=== PATIENT | male | born 1980 | race Caucasian/White ===

== ENCOUNTER 2022-10-31 11:54 | Inpatient (IN) | payer OTHER ==
[~2022-10-31] VITALS: Ht 180.3 cm; Wt 86.8 kg
[2022-10-31 12:15] VITALS: BP 155/86
[2022-10-31 12:21] LABS: Basophils # (auto) 0.1 10 ^3/uL (0-0.2); Basophils % (auto) 0.8 % (0.0-2.0); Eosinophils # (auto) 0 10 ^3/uL (0-0.8); Eosinophils % (auto) 0.6 % (0.0-7.0); Hematocrit 42.1 % (41.0-53.0); Hemoglobin 14.8 g/dL (13.5-17.5); Lymphocytes # (auto) 1.9 10 ^3/uL (0.4-5.4); Lymphocytes % (auto) 29.5 % (10.0-50.0); Mean Corpuscular Hemoglobin 29.7 pg (28.0-32.0); Mean Corpuscular Hgb Conc. 35.1 g/dL (32.0-36.0); Mean Corpuscular Volume 84.6 fL (80.0-100.0); Monocytes # (auto) 0.4 10 ^3/uL (0-1.3); Monocytes % (auto) 6.8 % (0.0-12.0); Neutrophils # (auto) 4.1 10 ^3/uL (1.6-8.6); Neutrophils % (auto) 62.3 % (37.0-80.0); Red Blood Cells 4.97 10^6/uL (4.5-5.90); Red Cell Distribution Width 13.6 % (11.8-14.3); White Blood Cell 6.6 10^3/uL (4.4-10.8)
[2022-10-31 12:38] LABS: Albumin 4.5 g/dL (3.4-5.0); Potassium 4.3 mmol/L (3.5-5.1)
[2022-10-31 12:42] LABS: BUN/Creatinine Ratio 16.7; Bilirubin, Total 0.5 mg/dL (0.2-1.0); Total Protein 7.8 g/dL (6.4-8.2)
[2022-10-31] MEDS ORDERED: ONDANSETRON HCL 4 MG/2 ML VIAL IV PRN (19:00)
[2022-10-31] MEDS ORDERED: ACETAMINOPHEN 325 MG TAB PO PRN (19:00)
[2022-10-31] MEDS ORDERED: NITROGLYCERIN 0.4 MG SL TAB SL PRN (19:00)
[2022-10-31] MEDS ORDERED: LORazepam 0.5 MG TAB PO PRN (19:00)
[2022-10-31] MEDS ORDERED: SODIUM CHLORIDE 0.9% 1,000 ML IV SCH (19:00)
[2022-10-31] MEDS ORDERED: MORPHINE SULFATE 4 MG/ML SYR/VIAL IV PRN (19:00)
[2022-10-31] MEDS ORDERED: ENOXAPARIN SOD 40 MG/0.4 ML SYRINGE SC ONE (19:15)
[2022-10-31 19:42] LABS: Cholesterol 175 mg/dL (< 200)
[2022-10-31 19:46] LABS: HDL Cholesterol 61 mg/dL (40-59); LDL Cholesterol 107 mg/dL (< 100); Triglycerides 41 mg/dL (< 150)
[2022-11-01] MEDS ORDERED: DOCUSATE SOD 100 MG CAP PO SCH (10:00)
[2022-11-01] MEDS ORDERED: ASPirin 81 mg TAB PO SCH (10:00)
== END 2022-10-31 20:15 | disposition left against medical advice (07) | DRG 309 ==
LOC: ER 11:54 → TELE 18:54
PROVIDERS: ADMIT Nurse Practitioner Family; ATTEND Nurse Practitioner Family
DX: I48.91 Unspecified atrial fibrillation (principal); I24.9 Acute ischemic heart disease, unspecified; E78.5 Hyperlipidemia, unspecified; I10 Essential (primary) hypertension; Z53.29 Procedure and treatment not carried out because of patient's decision for other reasons
CPT/HCPCS: 36415; 71045; 80053; 80061; 83735; 84443; 84484; 85025; 85379; 93005; G0378

== ENCOUNTER 2022-11-09 09:40 | Emergency (ER) | payer OTHER ==
[~2022-11-09] VITALS: Ht 175.3 cm; Wt 73.0 kg
[2022-11-09] MEDS ORDERED: SODIUM CHLORIDE 0.9% 1,000 ML IV ONE (10:45)
[2022-11-09 11:00] LABS: Urine WBC None Seen /hpf (0 - 3)
[2022-11-09 11:09] LABS: Urine Bacteria NONE SEEN /hpf (None Seen); Urine Blood Negative /uL (Negative); Urine Specific Gravity 1.009 (1.001-1.035)
[2022-11-09 12:11] LABS: Albumin 4.7 g/dL (3.4-5.0); Calcium 9.3 mg/dL (8.5-10.1); Potassium 3.5 mmol/L (3.5-5.1)
[2022-11-09 12:15] LABS: BUN/Creatinine Ratio 18.3; Bilirubin, Total 0.7 mg/dL (0.2-1.0)
[2022-11-09 13:09] LABS: Basophils # (auto) 0 10 ^3/uL (0-0.2); Basophils % (auto) 0.5 % (0.0-2.0); Eosinophils # (auto) 0 10 ^3/uL (0-0.8); Eosinophils % (auto) 0.7 % (0.0-7.0); Hematocrit 45.4 % (41.0-53.0); Hemoglobin 15.6 g/dL (13.5-17.5); Lymphocytes # (auto) 1.7 10 ^3/uL (0.4-5.4); Lymphocytes % (auto) 21.7 % (10.0-50.0); Mean Corpuscular Hemoglobin 29.5 pg (28.0-32.0); Mean Corpuscular Hgb Conc. 34.4 g/dL (32.0-36.0); Mean Corpuscular Volume 85.6 fL (80.0-100.0); Monocytes # (auto) 0.5 10 ^3/uL (0-1.3); Monocytes % (auto) 6.9 % (0.0-12.0); Neutrophils # (auto) 5.3 10 ^3/uL (1.6-8.6); Neutrophils % (auto) 70.2 % (37.0-80.0); Nucleated Red Blood Cells % 0.3 %; Red Blood Cells 5.31 10^6/uL (4.5-5.90); Red Cell Distribution Width 13.7 % (11.8-14.3); White Blood Cell 7.6 10^3/uL (4.4-10.8)
[2022-11-09 13:31] LABS: INR 1.01 (0.9-1.15); Partial Thromboplastin Time 28.4 sec (24.6-33.4)
[2022-11-09 14:50] VITALS: BP 119/79
== END 2022-11-09 14:53 | disposition home or self-care (01) ==
LOC: ER 09:40 → EDBD 09:40 → ER 14:50
DX: R00.2 Palpitations (principal); I10 Essential (primary) hypertension
CPT/HCPCS: 36415; 71045; 80053; 81001; 83880; 84484; 85025; 85379; 85610; 85730; 93005; 96360; 96361; 99285; J7030

== ENCOUNTER 2025-06-29 17:08 | Inpatient (IN) | payer BC, OTHER ==
[~2025-06-29] VITALS: Ht 180.3 cm; Wt 112.2 kg
--- NOTE | 2025-06-29 18:03 | ECG ---
[facility] Test Date: 2025-06-29 Test Time: 17:01:16 Pat Name: MONIQUE MORAN Department: Room: Gender: M Repair Department Supervisor: ZHANG : 1980 Requested By: KEYUR HARGROVE Order Number: [id number] Reading MD: Measurements Intervals Center Rate: 110 P: 26 NM: 156 QRS: -29 QRSD: 95 T: 66 QT: 337 QTc: 456 Interpretive Statements Sinus tachycardia Probable left atrial enlargement Borderline left axis deviation Abnormal R-wave progression, late transition Please click the below link to view image of tracing.
--- NOTE | 2025-06-29 19:00 | DVH ---
EXAM: XY CHEST PORTABLE HISTORY: SYNCOPE TECHNIQUE: 1 view of the chest COMPARISON: CHEST PORTABLE on DOS: 11/09/22 FINDINGS/IMPRESSION: LUNGS: Inconspicuous alveolar opacity of the periphery of the right mid lung zone MEDIASTINUM: Unremarkable BONES: No acute osseous abnormality OTHER: None
[2025-06-29 19:01] LABS: Hematocrit 49.6 % (41.0-53.0); Hemoglobin 17.7 g/dL (13.5-17.5); Mean Corpuscular Hemoglobin 30.8 pg (28.0-32.0); Mean Corpuscular Volume 86.6 fL (80.0-100.0); Nucleated Red Blood Cells % 0.1 %
[2025-06-29 19:22] LABS: Alanine Aminotransferase 33 U/L (7-40); Alkaline Phosphatase 91 U/L (46-116); Anion Gap 15 (5-15); BUN/Creatinine Ratio 12.8 (10.0-20.0); Blood Urea Nitrogen 14 mg/dL (9-23); Calcium 9.7 mg/dL (8.7-10.4); Carbon Dioxide 22 mmol/L (20-31); Magnesium 2.0 mg/dL (1.6-2.6)
[2025-06-29 19:23] LABS: Albumin 4.9 g/dL (3.2-4.8); Bilirubin, Total 1.5 mg/dL (0.2-1.0); Chloride 98 mmol/L (98-107); Glucose 113 mg/dL (74-106); Potassium 2.9 mmol/L (3.5-5.1); Sodium 135 mmol/L (136-145); Total Protein 8.6 g/dL (5.7-8.2)
[2025-06-29] MEDS: SODIUM CHLORIDE 0.9% 1,000 ML IV ONE (19:34)
--- NOTE | 2025-06-29 19:34 | ED.PDOC ---
HPI Comments HPI: 44-year-old male presents to the ED with a chief complaint of near-syncopal episode onset today (06/29/25). Patient was at urgent care, was brought to ED via wheelchair as a rapid response. He was seen at urgent care yesterday for sore throat and ear pain, was discharged with a prescription of Azithromycin. Took first dose last night, dose this morning, noted he began experiencing generalized body aches as well as a generalized rash, returned to urgent care. While at urgent care, he was hypotensive and became diaphoretic. Patient also states he is a heavy alcohol consumer has 6-8 shots of liquor a day, did not have any today. Patient is a poor historian. No other symptoms or modifying factors present at this time. Initial Vitals BP: 124/78 HR: 96 RR: 17 O2: 96% Past Medical History: a-fib, SVT, HTN Past Surgical History: Denies Social History: Denies ETOH, smoking, and drug use. Medications: Denies Allergies: NKDA HPI: Poor Historian. REVIEW OF SYSTEMS: CONSTITUTIONAL: Denies acute: fever, chills, HEAD: Denies acute: headache, photophobia Eyes: Denies acute: Double vision, vision loss, eye pain, eye discharge. EARS: Denies acute: tinnitus, hearing loss, ear discharge, ear pain, THROAT: Denies acute: sore throat, swelling, difficulty swallowing , pain with swallowing, change in voice. NECK: Denies acute: neck pain, neck swelling, stiff neck. HEART: Denies acute : chest pain, palpitations, LUNGS: Denies acute: SOB, wheezing, cough, hemoptysis ABDOMEN: Denies acute: abdominal pain, Nausea, Vomiting, diarrhea, melena , hematemesis, hematochezia SKIN: Denies acute: redness, itchiness. EXTREMITIES: Denies acute: calf pain, numbness, tingling, weakness, denies pain in extremity. Denies acute: Low back pain. Neuro: Denies acute: focal neurological deficit, motor or sensory focal neurological deficit, tremors, seizure like activity, confusion, dizziness, change in mental status, loss of bowel or bladder function, cauda equina like symptoms. : Denies acute: dysuria, hematuria, flank pain, increase in urinary frequency. PSYCH: Denies acute: hallucination, suicidal ideation, homicidal ideation. PHYSICAL EXAM: General: ---moderate-----acute distress, awake and alert. Head: normocephalic, atraumatic. Neck: supple, trachea is midline, no swelling. Throat: Normal phonation. Eyes:, no erythema, no purulent discharge, no proptosis, no icterus. Heart: regular rate, regular rhythm, no significant murmur appreciated. Lungs: no apparent respiratory distress, Able to speak in full sentences. No wheezing, no rhonchi, no crackles. No stridors Clear to auscultation bilaterally. Abdomen: non tender to palpation, non distended, soft, no guarding, no rebound, + bowel sounds. Neuro: Awake, Alert, oriented to name, self, situation, follows commands GCS=15. Speech is normal. Skin: no petechia, no purpura, no cyanosis, non-pale, not jaundice. Lower extremities: --no - Pitting edema no deformity, no focal swelling, no calf TTP. Makes eye contact. moves all four extremities. Face: no apparent facial droop. PERRLA, EOM-I CN 2-12 are grossly intact, No nystagmus. No nuchal rigidity, Kernig's sign, Brudzinski's sign, no meningeal signs. ED COURSE: DISCLAIMER: This medical document was created using an electronic medical record system with voice recognition software and computerized dictation system. Although this document has been carefully reviewed, there might still be some phonetic and typographical errors. Occasional wrong-word or "sound-alike" substitutions may have occurred due to the inherent limitations of voice recognition software. These areas are purely typographical due to imperfections of the software programs and do not reflect any compromise in the patient's medical care. Please read the chart carefully and recognize, using context, where these substitutions have occurred. Chief Complaint: Syncope Time Seen by MD: 19:20 Primary Care Provider: Garett Reviewed Notes: Medications, Allergies Allergies: Coded Allergies: Azithromycin (Verified Allergy, Unknown, 06/30/25) Home Meds Reported Medications Hctz (Hydrochlorothiazide) 25 Mg Tab, 1 TAB PO DAILY 06/30/25 Diltiazem Hcl (DILTIAZEM HCL ER) 240 Mg Cap, 1 CAP PO DAILY 06/30/25 Information Source: Patient Mode of Arrival: Wheelchair Severity: Moderate Timing: Hours Duration: Since onset Prehospital treatment: Other Cardiac Risk Factors: HTN PE Risk Factors: None Modifying Factors: Nothing Past Medical History PAST MEDICAL HISTORY: AFIB, HTN Past Medical History (Other): SVT Surgical History: Denies all surgeries Family History Family History: Reviewed,noncontributory to illness Social History Smoker: Non-Smoker Alcohol: Heavy Drugs: Denies Drug Use Lives In: Home Was a procedure done? Was a procedure done?: No CP Differential Dx Differential Diagnosis: Other (Includes but not limited to thyroid disease, encephalopathy, electrolyte abnormality, sepsis, infection, intracranial pathology, drug adverse effects, arrhythmia, kidney insufficiency, ACS, CVA, malignancy, anemia), N/A Differential Diagnosis: Other (Anemia, CVA, dehydration, dysrhythmia, electrolyte imbalance, encephalopathy, Guillain-[place], hypoglycemia, hypotension, hypovolemia, Meniere's disease, myasthenia gravis, NM, pulmonary embolus, renal failure, respiratory failure, TIA, VPI, vertigo central, vertigo peripheral, vestibular neuronitis) X-Ray, Labs, Meds, VS Vital Signs Date Time Temp Pulse Resp B/P (MAP) Pulse Ox O2 Delivery O2 Flow Rate FiO2 06/29/25 19:31 96 17 124/78 (93) 96 06/29/25 18:31 104 16 130/90 (103) 97 06/29/25 17:58 110 06/29/25 17:10 98.0 110 16 128/94 97 98.0 Lab Test 06/29/25 21:30 06/29/25 19:26 06/29/25 19:25 06/29/25 18:40 Range/Units Troponin I High Sensitivity 5 7 8 </=54 ng/L POC Glucose 144 H 70-106 mg/dl White Blood Count 9.4 4.4-10.8 10^3/uL Red Blood Count 5.73 4.5-5.90 10^6/uL Hemoglobin 17.7 H 13.5-17.5 g/dL Hematocrit 49.6 41.0-53.0 % Mean Corpuscular Volume 86.6 80.0-100.0 fL Mean Corpuscular Hemoglobin 30.8 28.0-32.0 pg Mean Corpuscular Hemoglobin Concent 35.6 32.0-36.0 g/dL Red Cell Distribution Width 13.8 11.8-14.3 % Platelet Count 280 140-450 10^3/uL Mean Platelet Volume 7.3 6.9-10.8 fL Neutrophils (%) (Auto) 72.3 37.0-80.0 % Lymphocytes (%) (Auto) 13.9 10.0-50.0 % Monocytes (%) (Auto) 12.2 H 0.0-12.0 % Eosinophils (%) (Auto) 1.4 0.0-7.0 % Basophils (%) (Auto) 0.2 0.0-2.0 % Neutrophils # (Auto) 6.8 1.6-8.6 10 ^3/uL Lymphocytes # (Auto) 1.3 0.4-5.4 10 ^3/uL Monocytes # (Auto) 1.2 0-1.3 10 ^3/uL Eosinophils # (Auto) 0.1 0-0.8 10 ^3/uL Basophils # (Auto) 0 0-0.2 10 ^3/uL Nucleated Red Blood Cells 0.1 % Sodium Level 135 L 136-145 mmol/L Potassium Level 2.9 L 3.5-5.1 mmol/L Chloride Level 98 98-107 mmol/L Carbon Dioxide Level 22 20-31 mmol/L Anion Gap 15 5-15 Blood Urea Nitrogen 14 9-23 mg/dL Creatinine 1.09 0.700-1.30 mg/dL Glomerular Filtration Rate Calc 87 >90 mL/min BUN/Creatinine Ratio 12.8 10.0-20.0 Serum Glucose 113 H 74-106 mg/dL Lactic Acid Level 1.2 0.4-2.0 mmol/L Calcium Level 9.7 8.7-10.4 mg/dL Magnesium Level 2.0 1.6-2.6 mg/dL Total Bilirubin 1.5 H 0.2-1.0 mg/dL Aspartate Amino Transferase (AST) 22 13-40 U/L Alanine Aminotransferase (ALT) 33 7-40 U/L Alkaline Phosphatase 91 46-116 U/L Total Protein 8.6 H 5.7-8.2 g/dL Albumin 4.9 H 3.2-4.8 g/dL Plasma/Serum Blood Alcohol < 3.0 <10 mg/dL [facility] [id number] [place] [id number] Ph: [phone] DIAGNOSTIC IMAGING Diagnostic Imaging Report : [id number] Signed PATIENT: MONIQUE MORANACCT: [id number] UNIT: [id number] : 1980 LOC: ER ROOM / BED: / AGE / SEX: 44 / M ADM STATUS: REG ER SERVICE 20 ORDERING PHYSICIAN: ULISES THOMPSON DO PROCEDURE(s): CXRP - CHEST PORTABLE REASON: SYNCOPE ORDER NUMBER(s): [id number], ACCESSION NUMBER(s): [id number] EXAM: XY CHEST PORTABLE HISTORY: SYNCOPE TECHNIQUE: 1 view of the chest COMPARISON: CHEST PORTABLE on DOS: 11/09/22 FINDINGS/IMPRESSION: LUNGS: Inconspicuous alveolar opacity of the periphery of the right mid lung zone MEDIASTINUM: Unremarkable BONES: No acute osseous abnormality OTHER: None ATED BY: SANDRA KLEIN MD DICTATED DATE/TIME: 06/29/251856 SIGNED BY: SANDRA KLEIN MD SIGNED DATE/TIME: 06/29/251856 CC: Time of 1ST Reevaluation: 19:50 Reevaluation 1ST: Unchanged Patient Education/Counseling: Diagnosis, Treatment Family Education/Counseling: No Family Present Comments MDM: patient presented with the above HPI.----generalized weakne ss/hypotension/near-syncope--workup was initiated. patient was found with the above mentioned diagnosis. the following medications were ordered: please refer to order lists of meds and tests obtained by myself Dr. Thompson. Patient ED course and VS have been stabilized. Patient has been reassessed in the ED and remained in a stable condition. Pertinent incidental findings were discussed with the patient and/or family. Patient/family voices understanding and is agreeable with plan. Patient has been observed in the ED adequate length of time to insure improvement/stability. Escalation of care considered: Consideration of escalation to observation or admission Patient was given steroids and potassium replacement and fluid hydration at least 2 L. Patient's vital signs improved and clinically improved as well. Patient was ADMITTED to the medicine team for further evaluation and treatment of their presentation. All the reports of any imaging studies that were ordered by myself were reviewed by myself. Departure 1 Departure Time of Disposition: 20:01 Impression: Primary Impression: Syncope and collapse Additional Impression: Hypotension Disposition: 09 ADMITTED INPATIENT Admit to: Tele Condition: Guarded Discharged With: Self Critical Care Note Critical Care Time?: Yes (1 hr-critical care time only) Heart Score Heart Score: Heart Score Response (Comments) Value History N/A 0 EKG N/A 0 Age N/A 0 Risk Factors N/A 0 Troponin N/A 0 Total 0 I personally scribed for ULISES THOMPSON DO ([email or web address]) on 06/29/25 at 19:34. Electronically submitted by Swati De La Torre ([email or web address]). I personally scribed for ULISES THOMPSON DO ([email or web address]) on 06/29/25 at 19:50. Electronically submitted by Swati De La Torre ([email or web address]). ULISES THOMPSON DO Jun 29, 2025 19:34
[2025-06-29] MEDS: methylPREDNISolone SOD SUCC 125 MG/2 ML VL IV ONE (19:42)
[2025-06-30] VITALS (7 sets, daily range): BP systolic 130–152; BP diastolic 80–102; PULSE 73–101; RESP 18–19; TEMP 97.7–98.8; O2SAT 92–95
[2025-06-30] MEDS ORDERED: ONDANSETRON HCL 4 MG/2 ML VIAL IV PRN (00:30)
--- NOTE | 2025-06-30 00:44 | DVHHP2 ---
History of Present Illness Reason for Visit: Hypotension History of Present Illness 44-year-old male presents for evaluation of hypotension. Patient states having a sore throat two days ago for which he presented to urgent care. He was prescribed azithromycin and a cough medicine. She reports taking it two nights ago and today in the morning he developed a generalized body rash with associated body aches and fatigue. He presented to urgent care to be evaluated. Patient became dizzy and diaphoretic and noted to have a blood pressure in the 80s. Patient was transported to the emergency department for further evaluation. Currently patient's blood pressure is in the one teens. He denies chest pain or shortness for breath. Continues to have a rash to his lower extremities and abdomen. Denies itchiness. Denies sore throat. Past Medical History Hypertension, SVT and atrial fibrillation Past Surgical History Denies Family History Noncontributory Smoke: No ALCOHOL: none Drugs: None Review of Systems Review of Systems Review of systems are currently negative otherwise addressed in HPI. Allergies: Coded Allergies: NO KNOWN ALLERGIES (Unverified , 10/31/22) Medications Current Medications Medications Dose Ordered Sig/Yael Route Start Time Stop Time Status Last Admin Dose Admin Famotidine 20 mg DAILY IV 06/30/25 10:00 Diltiazem HCl 240 mg DAILY PO 06/30/25 10:00 UNV Hydrochlorothiazide 25 mg DAILY PO 06/30/25 10:00 UNV Diphenhydramine HCl 50 mg Q6HP PRN PO 06/30/25 00:30 UNV Ondansetron HCl 4 mg Q4HP PRN IV 06/30/25 00:30 UNV Acetaminophen 650 mg Q6HP PRN PO 06/30/25 00:30 UNV Exam Vital Signs Vital Signs Date Time Temp Pulse Resp B/P (MAP) Pulse Ox O2 Delivery O2 Flow Rate FiO2 06/29/25 19:31 96 17 124/78 (93) 96 06/29/25 17:10 98.0 98.0 Exam Gen: 44-year-old male in mild distress Skin: Warm, dry, normal color and texture, rash to bilateral lower extremities and abdomen HEENT: Normocephalic atraumatic, mucous membranes moist and pink. Neck: Cervical and supraclavicular nodes normal without enlargement, trachea is midline, thyroid gland is normal without masses. Pulmonary: Clear to auscultation and percussion bilaterally. Cardiac: Regular rate and rhythm. No murmur Abdomen: Soft, nontender, nondistended, bowel sounds present all 4 quadrants, no guarding, no rigidity, no organomegaly. Extremities: No cyanosis, clubbing, no edema Neuro: Cranial nerves II through XII grossly intact, normal affect and speech, no focal motor deficits. Labs/Xrays ORDERING PHYSICIAN: ULISES THOMPSON DO PROCEDURE(s): CXRP - CHEST PORTABLE REASON: SYNCOPE ORDER NUMBER(s): [id number], ACCESSION NUMBER(s): [id number] EXAM: XY CHEST PORTABLE HISTORY: SYNCOPE TECHNIQUE: 1 view of the chest COMPARISON: CHEST PORTABLE on DOS: 11/09/22 FINDINGS/IMPRESSION: LUNGS: Inconspicuous alveolar opacity of the periphery of the right mid lung zone MEDIASTINUM: Unremarkable BONES: No acute osseous abnormality OTHER: None Labs Test 06/29/25 21:30 06/29/25 19:26 06/29/25 18:40 Range/Units Troponin I High Sensitivity 5 </=54 ng/L POC Glucose 144 H 70-106 mg/dl White Blood Count 9.4 4.4-10.8 10^3/uL Red Blood Count 5.73 4.5-5.90 10^6/uL Hemoglobin 17.7 H 13.5-17.5 g/dL Hematocrit 49.6 41.0-53.0 % Mean Corpuscular Volume 86.6 80.0-100.0 fL Mean Corpuscular Hemoglobin 30.8 28.0-32.0 pg Mean Corpuscular Hemoglobin Concent 35.6 32.0-36.0 g/dL Red Cell Distribution Width 13.8 11.8-14.3 % Platelet Count 280 140-450 10^3/uL Mean Platelet Volume 7.3 6.9-10.8 fL Neutrophils (%) (Auto) 72.3 37.0-80.0 % Lymphocytes (%) (Auto) 13.9 10.0-50.0 % Monocytes (%) (Auto) 12.2 H 0.0-12.0 % Eosinophils (%) (Auto) 1.4 0.0-7.0 % Basophils (%) (Auto) 0.2 0.0-2.0 % Neutrophils # (Auto) 6.8 1.6-8.6 10 ^3/uL Lymphocytes # (Auto) 1.3 0.4-5.4 10 ^3/uL Monocytes # (Auto) 1.2 0-1.3 10 ^3/uL Eosinophils # (Auto) 0.1 0-0.8 10 ^3/uL Basophils # (Auto) 0 0-0.2 10 ^3/uL Nucleated Red Blood Cells 0.1 % Sodium Level 135 L 136-145 mmol/L Potassium Level 2.9 L 3.5-5.1 mmol/L Chloride Level 98 98-107 mmol/L Carbon Dioxide Level 22 20-31 mmol/L Anion Gap 15 5-15 Blood Urea Nitrogen 14 9-23 mg/dL Creatinine 1.09 0.700-1.30 mg/dL Glomerular Filtration Rate Calc 87 >90 mL/min BUN/Creatinine Ratio 12.8 10.0-20.0 Serum Glucose 113 H 74-106 mg/dL Lactic Acid Level 1.2 0.4-2.0 mmol/L Calcium Level 9.7 8.7-10.4 mg/dL Magnesium Level 2.0 1.6-2.6 mg/dL Total Bilirubin 1.5 H 0.2-1.0 mg/dL Aspartate Amino Transferase (AST) 22 13-40 U/L Alanine Aminotransferase (ALT) 33 7-40 U/L Alkaline Phosphatase 91 46-116 U/L Total Protein 8.6 H 5.7-8.2 g/dL Albumin 4.9 H 3.2-4.8 g/dL Plasma/Serum Blood Alcohol < 3.0 <10 mg/dL SEPSIS Sepsis Screen Date sepsis recognized/suspect: Jun 29, 2025 Time Sepsis recognized/suspect: 1649 Recent Procedure: No On Antibiotic Therapy: Yes Respiratory Rate >20: No Heart Rate >90: Yes Temp<36 C (96.8 F) or >38.3 C: No SBP <90 or MAP <65 mmHG: No New Acute Mental Status Change: No Is the patient on CPAP, BIPAP,: No Physician Orders Merchandising Manager (06/29/25 ) Orthostatic Vital Signs (06/29/25 ) Drug Screen (06/29/25 18:21) Urinalysis (06/29/25 18:21) Chest Portable (06/29/25 18:21) Electrocardigram (06/29/25 19:30) Admit (06/29/25 23:55) Famotidine Injection (Pepcid Injection) (06/30/25 10:00) Diltiazem Er Capsule (Cardizem Er Capsul (06/30/25 10:00) Hydrochlorothiazide Tablet (Hydrochlorot (06/30/25 10:00) Diphenhdramine Capsule (Benadryl Capsule (06/30/25 00:30) Methylprednisolone Sod Succ (Solu Medrol (06/30/25 08:00) Sodium Chloride 0.9% (06/30/25 00:30) Orthostatic Vital Signs (06/30/25 ) Basic Metabolic Panel (06/30/25 04:00) Ondansetron Hcl (Zofran) (06/30/25 00:30) Cardiac Diet-2gna,Lofat,Lochol (06/30/25 Breakfast) Echo 2d Mode Cardiac Dop (06/30/25 00:25) Condition: Stable (06/30/25 00:25) Acetaminophen Tablet (Tylenol Tablet) (06/30/25 00:30) Bedrest With Bathroom Privileg (06/30/25 00:25) Vital Signs Date Time Temp Pulse Resp B/P (MAP) Pulse Ox O2 Delivery O2 Flow Rate FiO2 06/29/25 19:31 96 17 124/78 (93) 96 06/29/25 18:31 104 16 130/90 (103) 97 06/29/25 17:58 110 06/29/25 17:10 98.0 110 16 128/94 97 98.0 Laboratory Tests Test 06/29/25 18:40 Lactic Acid Level 1.2 mmol/L (0.4-2.0) White Blood Count 9.4 10^3/uL (4.4-10.8) Medications Medications Dose Ordered Sig/Yael Route Start Time Stop Time Status Last Admin Dose Admin Methylprednisolone Sodium Succinate 125 mg ONCE ONCE IV 06/29/25 19:30 06/29/25 19:31 DC 06/29/25 19:42 125 MG Sodium Chloride 1,000 ml @ 1,000 mls/hr Q1H ONCE IV 06/29/25 18:30 06/29/25 19:29 DC 06/29/25 19:34 1,000 MLS/HR Assessment/Plan Assessment/Plan Assessment Symptomatic hypotension Allergic reaction History of atrial fibrillation Plan Admit the patient to [facility] to the hospitalist Pepcid/methylprednisone/Benadryl/normal saline Resume home medications if blood pressure normalizes in a.m.. Echocardiogram pending Orthostatic vital signs Continue treatment per orders. Plan discussed with: Patient My Orders Orders - ROGER RAY Procedure Category Date Status Time Admit ADMIT 06/29/25 Transmitted 23:55 Famotidine Injection PHA 06/30/25 In Process (Pepcid Injection) 10:00 Diltiazem Er Capsule PHA 06/30/25 Logged (Cardizem Er Capsul 10:00 Hydrochlorothiazide PHA 06/30/25 Logged Tablet (Hydrochlorot 10:00 Diphenhdramine PHA 06/30/25 Logged Capsule (Benadryl 00:30 Methylprednisolone PHA 06/30/25 Logged Sod Succ (Solu Medrol 08:00 Sodium Chloride 0.9% PHA 06/30/25 Logged 00:30 Orthostatic Vital ED NURSING 06/30/25 Transmitted Signs Basic Metabolic Panel LAB 06/30/25 Logged 04:00 Ondansetron Hcl PHA 06/30/25 Logged (Zofran) 00:30 Cardiac DIET 06/30/25 Transmitted Diet-2gna,Lofat,Lochol Breakfast Echo 2d Mode Cardiac US 06/30/25 Logged DOP 00:25 Condition: Stable ALEXIA 06/30/25 In Process 00:25 Acetaminophen Tablet PHA 06/30/25 Logged (Tylenol Tablet) 00:30 Bedrest With Bathroom ALEXIA 06/30/25 In Process Privileg 00:25 Date of Service: Jun 29, 2025 Billing Provider: ROGER RAY Common Visit Codes: [id number] INP/OBS CARE (HIGH) ROGER RAY Jun 30, 2025 00:44
[2025-06-30] MEDS: POTASSIUM CHL 20 Meq TABLET PO ONE (01:19)
[2025-06-30] MEDS: FAMOTIDINE (10MG/ML) 2ML VL IV ONE (01:20)
[2025-06-30] MEDS: ACETAMINOPHEN 325 MG TAB PO PRN (01:20)
[2025-06-30] MEDS: SODIUM CHLORIDE 0.9% 500 ML IV ONE (01:20)
[2025-06-30] MEDS ORDERED: HYDROcodone-ACET 5/325MG TAB PO PRN (04:45)
[2025-06-30 05:15] LABS: Chloride 102 mmol/L (98-107)
[2025-06-30 05:16] LABS: Anion Gap 13 (5-15); Calcium 8.9 mg/dL (8.7-10.4)
[2025-06-30 05:22] LABS: BUN/Creatinine Ratio 15.1 (10.0-20.0); Blood Urea Nitrogen 13 mg/dL (9-23)
[2025-06-30] MEDS ORDERED: DILT-29 PO (05:24)
[2025-06-30] MEDS ORDERED: HYDR25TA5 PO (05:24)
[2025-06-30 05:28] LABS: Carbon Dioxide 20 mmol/L (20-31); Glucose 158 mg/dL (74-106); Potassium 3.5 mmol/L (3.5-5.1); Sodium 135 mmol/L (136-145)
[2025-06-30] MEDS: methylPREDNISolone SOD SUCC 40 MG/ML VL IV ONE (09:02)
[2025-06-30] MEDS: FAMOTIDINE (10MG/ML) 2ML VL IV SCH (09:55)
[2025-06-30] MEDS: dilTIAZem 120MG ER CAP PO SCH (10:10)
[2025-06-30] MEDS: hydroCHLOROthiazide 25 MG TAB PO SCH (10:10)
--- NOTE | 2025-06-30 13:13 | DVHPN2 ---
Reviewed: Care Plan, H&P, Labs, Medications, Previous Orders, Radiology Changes from previous H/P or p: No Changes Objective Vitals Vital Signs Date Time Temp Pulse Resp B/P (MAP) Pulse Ox O2 Delivery O2 Flow Rate FiO2 06/30/25 10:10 152/102 06/30/25 10:10 92 06/30/25 09:10 98.0 18 92 98.0 06/30/25 05:24 Room Air* 0 21 Medications Current Medications Medications Dose Ordered Sig/Yael Route Start Time Stop Time Status Last Admin Dose Admin Famotidine 20 mg DAILY IV 06/30/25 10:00 Diltiazem HCl 240 mg DAILY PO 06/30/25 10:00 06/30/25 10:10 240 MG Hydrochlorothiazide 25 mg DAILY PO 06/30/25 10:00 06/30/25 10:10 25 MG Diphenhydramine HCl 50 mg Q6HP PRN PO 06/30/25 00:30 06/30/25 11:52 50 MG Ondansetron HCl 4 mg Q4HP PRN IV 06/30/25 00:30 Acetaminophen 650 mg Q6HP PRN PO 06/30/25 00:30 06/30/25 01:20 650 MG Acetaminophen/ Hydrocodone Bitart 1 tab Q6HPRN PRN PO 06/30/25 04:45 Laboratory Results Laboratory Tests 06/29/25 18:40 06/30/25 03:44 Chemistry Test 06/29/25 18:40 06/30/25 03:44 Albumin 4.9 g/dL (3.2-4.8) H Calcium Level 9.7 mg/dL (8.7-10.4) 8.9 mg/dL (8.7-10.4) Magnesium Level 2.0 mg/dL (1.6-2.6) Total Protein 8.6 g/dL (5.7-8.2) H LFT Test 06/29/25 18:40 Alanine Aminotransferase (ALT) 33 U/L (7-40) Alkaline Phosphatase 91 U/L (46-116) Aspartate Amino Transferase (AST) 22 U/L (13-40) Total Bilirubin 1.5 mg/dL (0.2-1.0) H Labs and/or images reviewed: Labs reviewed by me, Image(s) reviewed by me Assessment/Plan Assessment/Plan Acute hypotension secondary to allergic reaction to azithromycin: IV fluids Solu-Medrol Benadryl Allergic reaction to medications History of AFib Symptomatic hypotension History of hypertension Time Spent 45 minutes Plan discussed with: Patient Date of Service: Jun 30, 2025 Billing Provider: GODWIN BLOCK MD Common Visit Codes: [id number] INP/OBS CARE(HIGH) GODWIN BLOCK MD Jun 30, 2025 13:13
--- NOTE | 2025-06-30 13:40 | DVHSR ---
APPROVED REPORT EXAM: Two-dimensional and M-mode echocardiogram with Doppler and color Doppler. Blood Pressure: 145/94 mmHg INDICATION Hypotension RISK FACTORS Height: 70, Weight: 241 DIMENSIONS LVDd (3.8-5.7cm)LA (2D)4.0 (1.9-4.0cm)Aortic Root3.7 (2.0-3.7cm) LVDs (2.5-4.0cm)LA (MM) (1.9-4.0cm)Aortic Cusp Exc2.2 (1.5-2.0cm) EF (%) 66.0 (55-70%)Rt. Atrium3.8 (1.9-4.0cm)Asc. Aorta cm Mitral Valve MitralMitral Stenosis E wave0.78m/sMV Mean GR.mmHg A wave0.68m/sMV Peak GR.mmHg E/A ratio1.12D MVAcm2 DECEL [id number] 1/2 [id number] IVRTmsDop MVA4.61cm2 Aortic Valve Aortic ValveAortic Stenosis V11.32m/Moises Mean GR.4mmHg V21.33m/Moises Peak GR.7mmHg LVOT Diameter2.3 (1.8-2.4cm)Doppler AVA4.12cm2 Pulmonic Valve V21.47m/s Conclusion lvef 60% normal rv function left atrium enlarged no severe valve abnormaliteis noted
[2025-06-30 15:24] LABS: Urine Protein, UAD Negative (Negative)
[2025-06-30 15:26] LABS: Amphetamine Screen, Urine Neg (NEGATIVE); Barbiturate Scree,Urine Neg (NEGATIVE); Benzodiazephine Screen, Urine Neg (NEGATIVE); Cocaine Screen, Urine Neg (NEGATIVE)
[2025-06-30 15:27] LABS: Cannabinoid Screen, Urine Pos (NEGATIVE); Opiate Scree,Urine Neg (NEGATIVE); Phencyclidine Screen, Urine Neg (NEGATIVE)
[2025-06-30] MEDS: KETOROLAC TROMETH 30 MG/ML 1ML VIAL IV ONE (16:52)
[2025-07-01 01:00] VITALS: BP 140/97; PULSE 97; RESP 18; TEMP 97.2; O2SAT 95
[2025-07-01 05:00] VITALS: BP 130/90; PULSE 69; RESP 19; TEMP 97.8; O2SAT 96
[2025-07-01] MEDS ORDERED: DIPH50TA9 PO (08:31)
[2025-07-01] MEDS ORDERED: PRED20TA2 PO (08:31)
--- NOTE | 2025-07-01 08:33 | DVHPN2 ---
Reviewed: Care Plan, H&P, Labs, Medications, Previous Orders, Radiology Changes from previous H/P or p: No Changes Objective Vitals Vital Signs Date Time Temp Pulse Resp B/P (MAP) Pulse Ox O2 Delivery O2 Flow Rate FiO2 07/01/25 08:05 Room Air* 0 21 07/01/25 05:00 97.8 69 19 130/90 (103) 96 97.8 Intake/Output Intake and Output 07/01/25 07:00 Intake Total 1300 ml Balance 1300 ml Intake Oral 1300 ml # Voids 4 Medications Current Medications Medications Dose Ordered Sig/Yael Route Start Time Stop Time Status Last Admin Dose Admin Famotidine 20 mg DAILY IV 06/30/25 10:00 Diltiazem HCl 240 mg DAILY PO 06/30/25 10:00 06/30/25 10:10 240 MG Hydrochlorothiazide 25 mg DAILY PO 06/30/25 10:00 06/30/25 10:10 25 MG Diphenhydramine HCl 50 mg Q6HP PRN PO 06/30/25 00:30 06/30/25 11:52 50 MG Ondansetron HCl 4 mg Q4HP PRN IV 06/30/25 00:30 Acetaminophen 650 mg Q6HP PRN PO 06/30/25 00:30 06/30/25 01:20 650 MG Acetaminophen/ Hydrocodone Bitart 1 tab Q6HPRN PRN PO 06/30/25 04:45 Laboratory Results Laboratory Tests 06/29/25 18:40 06/30/25 03:44 Urinalysis Test 06/30/25 14:45 Urine Color Light-yellow (Yellow) Urine Clarity Clear (Clear) Urine pH 6.5 (5.0-9.0) Urine Specific [place] 1.015 (1.001-1.035) Urine Protein Negative (Negative) Urine Ketones Negative (Negative) Urine Blood Negative /uL (Negative) Urine Nitrite Negative (Negative) Urine Bilirubin Negative (Negative) Urine Urobilinogen Normal mg/dL (Negative) Urine Leukocyte Esterase Negative /uL (Negative) Urine RBC <1 /hpf (0 - 3) Urine Microscopic WBC 1 /HPF (0-3) Urine Squamous Epithelial Cells None seen /hpf (<5) Urine Bacteria None seen /hpf (None Seen) Urine Glucose Normal mg/dL (Normal) Labs and/or images reviewed: Labs reviewed by me, Image(s) reviewed by me Assessment/Plan Assessment/Plan Acute hypotension secondary to allergic reaction to azithromycin: IV fluids Solu-Medrol Benadryl Allergic reaction to medications Rash bilateral lower extremities back secondary to the allergic reaction. improving History of AFib Symptomatic hypotension History of hypertension Time Spent 45 minutes Patient has no difficulty breathing or swallowing and would like to go home. Plan discussed with: Patient Date of Service: Jul 01, 2025 Billing Provider: GODWIN BLOCK MD Common Visit Codes: [id number] INP/OBS CARE(HIGH) GODWIN BLOCK MD Jul 01, 2025 08:33
--- NOTE | 2025-07-01 08:37 | DVHDS2 ---
Discharge Summary Date of Admission Jun 29, 2025 at 23:55 Date of Discharge: Jul 01, 2025 Admitting Diagnosis Rash bilateral lower extremities and back after taking azithromycin Wounds: None Labs/Diagnostic Data: Laboratory Results Test 06/30/25 14:45 06/30/25 03:44 06/29/25 21:30 06/29/25 19:26 Urine Color Light-yellow (Yellow) Urine Clarity Clear (Clear) Urine pH 6.5 (5.0-9.0) Urine Specific [place] 1.015 (1.001-1.035) Urine Protein Negative (Negative) Urine Ketones Negative (Negative) Urine Blood Negative /uL (Negative) Urine Nitrite Negative (Negative) Urine Bilirubin Negative (Negative) Urine Urobilinogen Normal mg/dL (Negative) Urine Leukocyte Esterase Negative /uL (Negative) Urine RBC <1 /hpf (0 - 3) Urine Microscopic WBC 1 /HPF (0-3) Urine Squamous Epithelial Cells None seen /hpf (<5) Urine Bacteria None seen /hpf (None Seen) Urine Glucose Normal mg/dL (Normal) Urine Opiates Screen Neg (NEGATIVE) Urine Fentanyl Screen Neg (NEGATIVE) Urine Barbiturates Screen Neg (NEGATIVE) Urine Phencyclidine Screen Neg (NEGATIVE) Urine Amphetamines Screen Neg (NEGATIVE) Urine Benzodiazepines Screen Neg (NEGATIVE) Urine Cocaine Screen Neg (NEGATIVE) Urine Cannabinoids Screen Pos (NEGATIVE) Sodium Level 135 mmol/L (136-145) Potassium Level 3.5 mmol/L (3.5-5.1) Chloride Level 102 mmol/L (98-107) Carbon Dioxide Level 20 mmol/L (20-31) Anion Gap 13 (5-15) Blood Urea Nitrogen 13 mg/dL (9-23) Creatinine 0.86 mg/dL (0.700-1.30) Glomerular Filtration Rate Calc 111 mL/min (>90) BUN/Creatinine Ratio 15.1 (10.0-20.0) Serum Glucose 158 mg/dL (74-106) Calcium Level 8.9 mg/dL (8.7-10.4) Creatine Kinase 33 U/L (46-171) Troponin I High Sensitivity 5 ng/L (</=54) POC Glucose 144 mg/dl (70-106) Test 06/29/25 18:40 White Blood Count 9.4 10^3/uL (4.4-10.8) Red Blood Count 5.73 10^6/uL (4.5-5.90) Hemoglobin 17.7 g/dL (13.5-17.5) Hematocrit 49.6 % (41.0-53.0) Mean Corpuscular Volume 86.6 fL (80.0-100.0) Mean Corpuscular Hemoglobin 30.8 pg (28.0-32.0) Mean Corpuscular Hemoglobin Concent 35.6 g/dL (32.0-36.0) Red Cell Distribution Width 13.8 % (11.8-14.3) Platelet Count 280 10^3/uL (140-450) Mean Platelet Volume 7.3 fL (6.9-10.8) Neutrophils (%) (Auto) 72.3 % (37.0-80.0) Lymphocytes (%) (Auto) 13.9 % (10.0-50.0) Monocytes (%) (Auto) 12.2 % (0.0-12.0) Eosinophils (%) (Auto) 1.4 % (0.0-7.0) Basophils (%) (Auto) 0.2 % (0.0-2.0) Neutrophils # (Auto) 6.8 10 ^3/uL (1.6-8.6) Lymphocytes # (Auto) 1.3 10 ^3/uL (0.4-5.4) Monocytes # (Auto) 1.2 10 ^3/uL (0-1.3) Eosinophils # (Auto) 0.1 10 ^3/uL (0-0.8) Basophils # (Auto) 0 10 ^3/uL (0-0.2) Nucleated Red Blood Cells 0.1 % Lactic Acid Level 1.2 mmol/L (0.4-2.0) Magnesium Level 2.0 mg/dL (1.6-2.6) Total Bilirubin 1.5 mg/dL (0.2-1.0) Aspartate Amino Transferase (AST) 22 U/L (13-40) Alanine Aminotransferase (ALT) 33 U/L (7-40) Alkaline Phosphatase 91 U/L (46-116) Total Protein 8.6 g/dL (5.7-8.2) Albumin 4.9 g/dL (3.2-4.8) Plasma/Serum Blood Alcohol < 3.0 mg/dL (<10) Other Laboratory Tests 06/30/25 03:44 06/29/25 18:40 Brief Hx & Hospital Course: 44-year-old male with a history of hypertension to call azithromycin follow up rash bilateral lower extremities and back and presented to the ER with a syncope and hypotension. Given IV fluids Benadryl and Solu-Medrol and Pepcid with a which he has recovered. At the time of discharge afebrile stable vital signs no difficulty breathing or swallowing. Rashe slightly better and patient wants to go home . discharged home on Benadryl and prednisone tablets . He will follow up with his primary doctor. Consults/Reason for consult None Operations or Procedures None Condition at Discharge: Fair Final Diagnosis/Problems List Acute hypotension secondary to allergic reaction to azithromycin: IV fluids Solu-Medrol Benadryl Allergic reaction to medications Rash bilateral lower extremities back secondary to the allergic reaction. improving History of AFib Symptomatic hypotension History of hypertensio Discharge Disposition: Home Discharge Instruct/Medications Diet: Regular Activity: Light activity Follow Up/Referral: You may be allergic to azithromycin. Do not take it in the future. Medications: Benadryl tablet Prednisone tablets Transmitted to [facility] pharmacy Scheduled Diltiazem Hcl (Diltiazem Hcl Er), 1 CAP PO DAILY, (Reported) Diphenhydramine Hcl (Diphenhydramine Hcl), 1 TAB PO TID Hctz (Hydrochlorothiazide), 1 TAB PO DAILY, (Reported) Prednisone (Prednisone), 20 MG PO DAILY 35 (Time taken for discharge summary 35 minutes) Discharge Statement: "Patient was advised to return to the ER or call 911 if any headaches, dizziness, shortness of breath, chest pain, abdominal pain, bleeding, fevers, or worsening of medical condition. Patient was counseled about treatment plan, medications, possible side effects, patientverbalized understanding. All questions were answered to the best of my ability. This discharge took greater then 30 minutes in planning, reviewing documentation, counseling the patient, and discussing with other team members." ASSESSMENT ASSESSMENT Hospital Course Improved Assessment Acute hypotension secondary to allergic reaction to azithromycin: IV fluids Solu-Medrol Benadryl Allergic reaction to medications Rash bilateral lower extremities back secondary to the allergic reaction. improving History of AFib Symptomatic hypotension History of hypertensio Date of Service: Jul 01, 2025 Billing Provider: GODWIN BLOCK MD Common Visit Codes: [id number] DISCH DAY >30min GODWIN BLOCK MD Jul 01, 2025 08:37
[2025-07-01 09:00] VITALS: BP 141/95; PULSE 84; RESP 18; TEMP 97.5; O2SAT 97
== END 2025-07-01 10:51 | disposition home or self-care (01) | DRG 312 ==
LOC: ER 17:18 → OVERFLOW 23:55 → EAST 06-30 18:26
PROVIDERS: ADMIT Family Medicine; ATTEND Family Medicine
DX: I95.2 Hypotension due to drugs (principal); T36.3X5A Adverse effect of macrolides, initial encounter; I10 Essential (primary) hypertension; I48.91 Unspecified atrial fibrillation; L27.0 Generalized skin eruption due to drugs and medicaments taken internally; Y92.89 Other specified places as the place of occurrence of the external cause; Z88.1 Allergy status to other antibiotic agents
CPT/HCPCS: 36415; 71045; 80048; 80053; 80307; 80320; 81001; 82550; 82962; 83605; 83735; 84484; 85025; 93005; 93306; 96361; 96374; G0378; J3490